=== PATIENT | female | born 1995 | race Caucasian/White ===

== ENCOUNTER → 2016-03-24 | Outpatient (CLI) | payer MEDICAID ==
[~2016-03-24] MED LIST: AMOXICOT500 MG PO; BACTRIM 400 MG-1 TAB PO; MEDROL 4MG. DOSE4 MG PO; PHENERGAN25 M3 PO; PRENATABS RX1 TAB PO; ZITHROMAX Z-PA250 M2 PO; ZOFRAN ODT4 MG PO
--- NOTE | 2016-04-03 23:32 | RADIOLOGY REPORT PS360 ---
US PREG COMP INDICATION: ANATOMICAL SURVEY 20 week TECHNIQUE: ultrasound transabdominal scanning/ MW COMPARISON: February 01, 2016 ultrasound = ultrasound age 13 week 2 day on that prior scan FINDINGS Single viable intrauterine gestation. Cephalic position. High Posterior placenta. With no previa. The cervix appears satisfactory. Long, closed and nearly 2.75 cm length cm length Complete survey performed and was unremarkable on the submitted images as in PACS.No discrete anomalies identified on survey imaging by technologist Active fetus. Three-vessel cord with satisfactory umbilical cord insertion. . Survey of brain & ventricles unremarkable.. Face and neck survey unremarkable. Nasion. lips. Orbits overall satisfactory on today's survey Diaphragm & views chest unremarkable. Four-chamber heart are visualized satisfactory. Cine loop heart included abdomen: Both kidneys noted & unremarkable. Stomach noted & satisfactory. spine: Survey of the spine satisfactory with no anomalies identified nor imaged Both arms and legs noted. Amniotic fluid.-Adequate. Maternal adnexa -no gross incidental findings. measurements:. Average ultrasound age 20 week 4 days. Gestational age 20 week 5 day based on LMP 10/31/2015. BPD = 20 week 5 day OFD = 20 week 5 day HC = 19 week 6 day AC = 19 week 6 day FL = 21 week 5 day. Heart rate = 150 BPM. Cerebellum = 21 week 4 day humerus = 21 week 6 day IMPRESSION: Single viable intrauterine gestation in cephalic position currently. 20 week 4 dayaverage ultrasound age with today's measurements I Posterior placenta. Active fetus. Satisfactory/Unremarkable anatomical survey
== END ==
LOC: RAD 03-19 15:00
DX: Z34.80 Encounter for supervision of other normal pregnancy, unspecified trimester (principal)

== ENCOUNTER 2016-06-14 07:56 | Outpatient (CLI) | payer MEDICAID ==
[~2016-06-14] VITALS: Ht 177.8 cm; Wt 68.9 kg
[~2016-06-14 07:56] MED LIST changes: -AMOXICOT500 MG PO
[2016-06-14 08:19] VITALS: BP 129/71
[2016-06-14 08:56] LABS: URINE BILIRUBIN - DIPSTICK NEGATIVE (NEG); URINE BLOOD 3+ (NEG)
[2016-06-14 09:05] LABS: AMPHETAMINES/METAMPHETAMINES NEGATIVE ng/mL (<1000)
[2016-06-14] MEDS ORDERED: AMOXICOT500 MG PO (12:11)
== END 2016-06-14 09:40 | disposition home or self-care (01) ==
LOC: OB 07:56 → OBOUT 07:56 → OB 07:57 → OBOUT 09:40
PROVIDERS: Obstetrics & Gynecology
DX: O26.93 Pregnancy related conditions, unspecified, third trimester (principal); Z3A.32 32 weeks gestation of pregnancy; R10.31 Right lower quadrant pain

== ENCOUNTER 2016-06-14 09:43 | Emergency (ER) | payer MEDICAID ==
[~2016-06-14] VITALS: Ht 177.8 cm; Wt 68.9 kg
--- NOTE | 2016-06-14 09:57 | Emergency Room Report ---
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 Clinical Suspician of Infection? Mental Status: Sepsis Risk: Have you (or family members/close friends) recently traveled outside the [place]? If Yes, where/when: Have you had exposure to infectious disease within the past month? TB? Other? Specify: Source patient, RN notes reviewed Exam Limitations no limitations Comment Pt is a 33 week gestation WF who has had back pain since early . Came to the OB floor today for evaluation for early labor but not in labor at this time but does have blood in urine and right flank pain and is afebrile Cardiac Chest Pain Chest pain indicative of cardiac No ALLERGIES Coded Allergies: No Known Drug Intolerances (NA 04/28/16) Home Medications Reported Medications VIT #76/IRON,CARB/FA (Prenatabs Rx Tablet) 1 TAB PO DAILY History Medical History General CAD? No Angina: No PA: No Hypertension? No Hyperlipidemia? No CHF? No DVT? No PE? No COPD? No Asthma? No Anemia? No GERD? No Gastric ulcers? No GI Bleed? No Hernia? No Thyroid Problems? No Hypothyroidism? No CVA? No Seizures? No Diabetes? No Renal Insuffiency? No End Stage Renal Disease? No UTI? No Stones? No BPH? No GB Disease: No Nephritic Syndrome? No Asplenia? No Hepatitis? No Sickle Cell Disease? No Arthritis? No Migraines? No Cataracts? No Glaucoma? No MRSA? No HIV? No TB? No Anxiety? Yes Depression? Yes Cancer? No Site: N More? No Immunization Hx DT/Tetanus 5-10 Years Ago Flu 2016-17FSN Pneumonia Refuses Surgical Hx Previous Surgery?Y D & C Social History Smoking Hx Packs/day < 1 Pack Alcohol Alcohol: No Review of Systems All Other Systems Reviewed and Negative Constitutional see HPI Gastrointestinal see HPI Genitourinary see HPI. Physical Exam Vital Signs Vital Signs Date Time Temp Pulse Resp B/P Pulse O2 O2 Flow FiO2 Ox Delivery Rate 06/14 1001 98.0 78 22 126/60 98 06/14 0953 98.0 78 22 126/66 98 General Appearance normal appearance, WD/WN, no apparent distress Respiratory Status No: respiratory distress. Lung Sounds bilateral: normal breath sounds. 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 No Results/Orders Laboratory Tests 06/14/16 1045: Sodium 138, Potassium 3.8, Chloride 103, Carbon Dioxide 24, BUN 8, Creatinine 0.6, Estimated Creat Clear 160, Estimated GFR (MDRD) 125, Glucose 78, Calcium 8.6, Total Bilirubin 0.2, AST 14 L, ALT 17, Alkaline Phosphatase 97, Total Protein 6.5, Albumin 2.8 L, Globulin 3.7 H, Albumin/Globulin Ratio 0.8 L, WBC 14.1 H, RBC 4.04 L, Hgb 13.5, Hct 39.6, MCV 98.1 H, RDW 12.8, Plt Count 350, MPV 6.4 L, Gran % 77.7, Gran # 11.0 H, Lymphocytes % 16.4, Monocytes % 4.5, Eosinophils % 0.9, Basophils % 0.4, Lymphocytes # 2.3, Monocytes # 0.6, Eosinophils # 0.1, Basophils # 0.1, PUBS MCHC 34.0, MCH 33.3 H Current Medication Orders Sig/Niru Start time Last Medication Dose Route Stop Time Status Admin Sodium Chloride 10 ML PRN PRN 06/14 1045 AC IV 06/15 1037 Orders Procedure Date/time Status US [id number] 06/14 1040 Active IV SALINE LOCK 06/14 1040 Active CBC WITH AUTO DIFF 06/14 1040 Complete CHEM 12 PROFILE 06/14 1040 Complete XRAY/CT/US XRAY/CT/US Ultrasound pelvis US Interpretation by reviewed by me US results normal Departure Departure Time of Disposition 1208 Disposition DC Home or Self Care(routine) Clinical Impression Primary Impression: Normal intrauterine in third trimester Secondary Impressions: Cystitis with hematuria, Hematuria Condition STABLE Referrals GIOVANA RINCON (Family): 3 Days-Call Office Patient Instructions Acute Cystitis, DI for Acute Cystitis Additional Instructions Drink lots of fluids to flush out the kidneys and bladder and followup with PCP or OBGYN in the next 3 to 4 days to recheck UA Discharge Counseling Counseled pt/family regarding diagnosis, test results, medications/RX, home care Prescriptions Current Visit Scripts Amoxicillin (Amoxicillin 500MG) 500 MG PO TID #30 CAP ED Critical Care Critical Care No If Critical Care minutes are documented, the time involved in the performance of seperately reportable procedures was not counted toward critical care time documented. I directly delivered medical care to this critically ill and/or injured patient. Timely evaluation and treatment was necessary to address the significant organ system(s) dysfunction present in this patient. at 1211
--- NOTE | 2016-06-14 09:57 | Emergency Room Report ---
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 Clinical Suspician of Infection? Mental Status: Sepsis Risk: Have you (or family members/close friends) recently traveled outside the [place]? If Yes, where/when: Have you had exposure to infectious disease within the past month? TB? Other? Specify: Source patient, RN notes reviewed Exam Limitations no limitations Comment Pt is a 33 week gestation WF who has had back pain since early . Came to the OB floor today for evaluation for early labor but not in labor at this time but does have blood in urine and right flank pain and is afebrile Cardiac Chest Pain Chest pain indicative of cardiac No ALLERGIES Coded Allergies: No Known Drug Intolerances (NA 04/28/16) Home Medications Reported Medications VIT #76/IRON,CARB/FA (Prenatabs Rx Tablet) 1 TAB PO DAILY History Medical History General CAD? No Angina: No ME: No Hypertension? No Hyperlipidemia? No CHF? No DVT? No PE? No COPD? No Asthma? No Anemia? No GERD? No Gastric ulcers? No GI Bleed? No Hernia? No Thyroid Problems? No Hypothyroidism? No CVA? No Seizures? No Diabetes? No Renal Insuffiency? No End Stage Renal Disease? No UTI? No Stones? No BPH? No GB Disease: No Nephritic Syndrome? No Asplenia? No Hepatitis? No Sickle Cell Disease? No Arthritis? No Migraines? No Cataracts? No Glaucoma? No MRSA? No HIV? No TB? No Anxiety? Yes Depression? Yes Cancer? No Site: N More? No Immunization Hx DT/Tetanus 5-10 Years Ago Flu 2016-17FSN Pneumonia Refuses Surgical Hx Previous Surgery?Y D & C Social History Smoking Hx Packs/day < 1 Pack Alcohol Alcohol: No Review of Systems All Other Systems Reviewed and Negative Constitutional see HPI Gastrointestinal see HPI Genitourinary see HPI. Physical Exam Vital Signs Vital Signs Date Time Temp Pulse Resp B/P Pulse O2 O2 Flow FiO2 Ox Delivery Rate 06/14 1001 98.0 78 22 126/60 98 06/14 0953 98.0 78 22 126/66 98 General Appearance normal appearance, WD/WN, no apparent distress Respiratory Status No: respiratory distress. Lung Sounds bilateral: normal breath sounds. 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 No Results/Orders Laboratory Tests 06/14/16 1045: Sodium 138, Potassium 3.8, Chloride 103, Carbon Dioxide 24, BUN 8, Creatinine 0.6, Estimated Creat Clear 160, Estimated GFR (MDRD) 125, Glucose 78, Calcium 8.6, Total Bilirubin 0.2, AST 14 L, ALT 17, Alkaline Phosphatase 97, Total Protein 6.5, Albumin 2.8 L, Globulin 3.7 H, Albumin/Globulin Ratio 0.8 L, WBC 14.1 H, RBC 4.04 L, Hgb 13.5, Hct 39.6, MCV 98.1 H, RDW 12.8, Plt Count 350, MPV 6.4 L, Gran % 77.7, Gran # 11.0 H, Lymphocytes % 16.4, Monocytes % 4.5, Eosinophils % 0.9, Basophils % 0.4, Lymphocytes # 2.3, Monocytes # 0.6, Eosinophils # 0.1, Basophils # 0.1, PUBS MCHC 34.0, MCH 33.3 H Current Medication Orders Sig/Niru Start time Last Medication Dose Route Stop Time Status Admin Sodium Chloride 10 ML PRN PRN 06/14 1045 AC IV 06/15 1037 Orders Procedure Date/time Status US [id number] 06/14 1040 Active IV SALINE LOCK 06/14 1040 Active CBC WITH AUTO DIFF 06/14 1040 Complete CHEM 12 PROFILE 06/14 1040 Complete XRAY/CT/US XRAY/CT/US Ultrasound pelvis US Interpretation by reviewed by me US results normal Departure Departure Time of Disposition 1208 Disposition DC Home or Self Care(routine) Clinical Impression Primary Impression: Normal intrauterine in third trimester Secondary Impressions: Cystitis with hematuria, Hematuria Condition STABLE Referrals GIOVANA RINCON (Family): 3 Days-Call Office Patient Instructions Acute Cystitis, DI for Acute Cystitis Additional Instructions Drink lots of fluids to flush out the kidneys and bladder and followup with PCP or OBGYN in the next 3 to 4 days to recheck UA Discharge Counseling Counseled pt/family regarding diagnosis, test results, medications/RX, home care Prescriptions Current Visit Scripts Amoxicillin (Amoxicillin 500MG) 500 MG PO TID #30 CAP ED Critical Care Critical Care No If Critical Care minutes are documented, the time involved in the performance of seperately reportable procedures was not counted toward critical care time documented. I directly delivered medical care to this critically ill and/or injured patient. Timely evaluation and treatment was necessary to address the significant organ system(s) dysfunction present in this patient. at 1211
[2016-06-14 10:52] LABS: HEMOGLOBIN 13.5 g/dL (12.2-16.2); LYMPH # 2.3 K/mm3 (0.7-4.5); LYMPH % 16.4 % (10-50.0)
[2016-06-14] MEDS ORDERED: AMOXICOT500 MG PO (12:11)
[2016-06-14 12:57] VITALS: BP 127/73
--- NOTE | 2016-06-14 13:40 | RADIOLOGY REPORT PS360 ---
US [id number] COMPARISON: Ultrasound 03/24/2016 HISTORY: 33 week gestation, complaining of right lower quadrant and right flank pain TECHNIQUE: Targeted ultrasound of both kidneys FINDINGS: Right kidney measures 11.6 x 4.3 x 6.2 cm. There is, hydronephrosis of the collecting system. The spleen is normal. The left kidney measures 13.2 x 5.2 x 6.1 cm. There is moderate hydronephrosis noted. 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
== END 2016-06-14 12:58 | disposition home or self-care (01) ==
LOC: UTC 09:43 → ER 09:45 → UTC 09:45 → ER 12:58
PROVIDERS: General Practice
DX: O23.13 Infections of bladder in pregnancy, third trimester (principal); Z3A.33 33 weeks gestation of pregnancy

== ENCOUNTER 2016-06-18 18:02 | Outpatient (CLI) | payer MEDICAID ==
[~2016-06-18] VITALS: Ht 177.8 cm; Wt 74.8 kg
[~2016-06-18 18:02] MED LIST changes: +AMOXICOT500 MG PO
[2016-06-18 18:23] VITALS: BP 128/81
[2016-06-18 18:59] LABS: URINE BILIRUBIN - DIPSTICK NEGATIVE (NEG); URINE BLOOD NEGATIVE (NEG)
[2016-06-18 19:08] LABS: URINE SQUAMOUS CELLS OCC #/hpf (0-5)
[2016-06-18 19:09] LABS: AMPHETAMINES/METAMPHETAMINES NEGATIVE ng/mL (<1000)
== END 2016-06-19 01:48 | disposition home or self-care (01) ==
LOC: OB 18:02 → OBOUT 18:02 → OB 18:03 → OBOUT 06-19 01:48
PROVIDERS: Nurse Practitioner Obstetrics & Gynecology
DX: O26.93 Pregnancy related conditions, unspecified, third trimester (principal); Z3A.33 33 weeks gestation of pregnancy; R10.30 Lower abdominal pain, unspecified; M54.5 Low back pain
CPT/HCPCS: J0595

== ENCOUNTER 2016-07-05 08:17 | Outpatient (CLI) | payer MEDICAID ==
[~2016-07-05] VITALS: Ht 177.8 cm; Wt 77.1 kg
[2016-07-05 08:56] VITALS: BP 124/64
[2016-07-05] MEDS ORDERED: PRENATAL PLUS1 TA1 PO (09:04)
[2016-07-05 09:12] LABS: URINE BILIRUBIN - DIPSTICK NEGATIVE (NEG); URINE BLOOD TRACE-INTACT (NEG)
[2016-07-05 09:31] LABS: AMPHETAMINES/METAMPHETAMINES NEGATIVE ng/mL (<1000)
== END 2016-07-05 10:10 | disposition home or self-care (01) ==
LOC: OBOUT 08:17 → OB 08:18 → OBOUT 10:10
PROVIDERS: Obstetrics & Gynecology
DX: O60.03 Preterm labor without delivery, third trimester (principal); Z3A.35 35 weeks gestation of pregnancy